=== PATIENT | female | born 1965 | race African-American/Black ===

== ENCOUNTER 2017-02-05 06:06 | Day surgery (SDC) | payer OTHER ==
[2017-02-01 13:24] VITALS: BMI 26.4
[2017-02-05] MEDS ORDERED: PROPOFOL 20 ML ONE (11:00)
[2017-02-05] MEDS ORDERED: MIDAZOLAM HCL 2 MG/2 ML SINGLE DOSE VIAL ONE (11:00)
[2017-02-05] MEDS ORDERED: LIDOCAINE HCL 2% (20ML MULTI-DOSE VIAL) NR ONE (11:01)
[2017-02-05] MEDS ORDERED: SUCCINYLCHOLINE CHLORIDE 200 MG/10 ML VIAL ONE (11:01)
[2017-02-05] MEDS ORDERED: ACETAMINOPHEN 325 MG TABLET (FP) PO PRN (11:07)
[2017-02-05] MEDS ORDERED: IBUPROFEN 400 MG TABLET (FP) PO PRN (11:07)
--- NOTE | 2017-02-05 11:10 | HP ---
History & Physical Update - History History: No Change - Physical Physical: No Change - Assessment Assessment: No Change - Plan Plan: No Change
[2017-02-05] MEDS ORDERED: KETOROLAC TROMETHAMINE 30 MG/1 ML VIAL ONE (11:20)
[2017-02-05] MEDS ORDERED: FERRIC SUBSULFATE 500 ML BOTTLE TP ONE (11:27)
[2017-02-05] MEDS ORDERED: IODINE/POTASSIUM IODIDE 5%/10% 14 ML BOTTLE NR ONE (11:27)
[2017-02-05 13:16] VITALS: TEMP 97.5
[2017-02-05 13:42] VITALS: BP 126/78; PULSE 55
--- NOTE | 2017-02-05 19:38 | OP ---
DATE OF OPERATION: 02/05/2017 PREOPERATIVE DIAGNOSIS: Cervical dysplasia, human papillomavirus. OPERATION: LEEP cone biopsy. POSTOPERATIVE DIAGNOSIS: Cervical dysplasia, human papillomavirus. SURGEON: Marta Dalton M.D. ANESTHESIA: General. ANESTHESIOLOGIST: Makayla Chao M.D. PROCEDURE: Patient was taken to operating room, placed in dorsal lithotomy position, prepped and draped in usual sterile fashion. Timeout performed in accordance with hospital regulation. Speculum was placed to the vagina. The Lugol's was placed on the cervix. A large LEEP loop cone biopsy was then done. Specimen was labeled at 12 o'clock, submitted to pathology. Cautery of the cervix was then done. Monsel's was then placed. Patient tolerated procedure well. Estimated blood loss 3 cc. MARTA DALTON M.D. [id number]
--- NOTE | 2017-02-06 15:44 | PATH ---
Surgical Pathology Report Patient Name: RYAN MAURICE [facility]. Rec. #: [id number] /Age/Gender: 1965 (Age: 51) / F Account: [id number] Location: [facility] SURGICAL Taken: 02/05/2017 Received: 02/05/2017 Reported: 02/06/2017 Physicians: Marta Dalton M.D. Specimen(s) Received CERVICAL LEEP CONE Clinical History Cervical dysplasia Final Diagnosis CERVIX, LEEP CONE BIOPSY: CERVICAL SQUAMOUS AND ENDOCERVICAL MUCOSA WITH EXTENSIVE LOW GRADE SQUAMOUS INTRAEPITHELIAL LESION (CERVICAL INTRAEPITHELIAL NEOPLASIA 1/SOLANGE 1), PRESENT IN ALL FOUR QUADRANTS. SURGICAL RESECTION MARGINS: NEGATIVE FOR DYSPLASIA. TRANSFORMATION ZONE: PRESENT. Electronically Signed Michael Guerrero M.D. Gross Description Received in formalin labeled "LEEP cone biopsy" is a 2 cm diameter annular portion of soft tissue, consistent with a cervical LEEP cone biopsy. There is a suture present marking the 12:00 aspect of the specimen, per the surgeon. The specimen is surface by a knight-pink, shiny and glistening mucosa. The specimen is inked blue, serially sectioned and entirely and sequentially submitted in 5 cassettes as follows: 1-12:00 to 3:00; 2-3-3:00 to 6:00; 4-6:00 to 9:00; 5-9:00 to 12:00. 02/05/2017 [facility]02/05/2017
== END 2017-02-05 13:55 | disposition home or self-care (01) ==
LOC: JASU-SURG 06:06
PROVIDERS: ATTEND Obstetrics & Gynecology
PROC: 0UBC7ZX Excision of Cervix, Via Natural or Artificial Opening, Diagnostic (ICD-10-PCS; principal; 2017-02-05 10:00)
DX: N87.9 Dysplasia of cervix uteri, unspecified (principal); A63.0 Anogenital (venereal) warts; Z21 Asymptomatic human immunodeficiency virus [HIV] infection status
CPT/HCPCS: 88307-TC; 94760